=== PATIENT | male | born 1945 | race Caucasian/White ===

== ENCOUNTER 2017-07-08 17:02 | Day surgery (SDC) | payer MEDICARE, MEDICAID ==
[2017-07-08] VITALS (19 sets, daily range): BP systolic 129–156; BP diastolic 69–86
[~2017-07-08] VITALS: Ht 182.9 cm; Wt 103.5 kg
[~2017-07-08 17:02] MED LIST: PSEU120T55 PO
[2017-07-08] MEDS ORDERED: midazolam 100mg in NS 100ml 100 ML IV PRN (17:14)
[2017-07-08] MEDS ORDERED: FENTANYL-0.9 % NACL/PF 100 ML IV PRN (17:14)
[2017-07-08] MEDS ORDERED: fentaNYL/PF 50MCG/1 ML 2ML syringe IV PRN (17:15)
[2017-07-08] MEDS ORDERED: midazolam 2 mg/2 ml injection IV ONE (17:15)
[2017-07-08] MEDS ORDERED: ePHEDrine 50MG/ML INJ. ONE (18:33)
[2017-07-08] MEDS ORDERED: sevoflurane 250ml liquid IH ONE (18:33)
[2017-07-08] MEDS ORDERED: ceFAZolin 1000mg inj ONE ×2 (19:03)
[2017-07-08] MEDS ORDERED: rocuronium 10mg/ml inj IV ONE (19:03)
[2017-07-08] MEDS ORDERED: epiNEPHrine 0.1mg/ml 10ml syringe ONE (19:03)
[2017-07-08] MEDS ORDERED: 0.9 % SODIUM CHLORIDE 10 ML VIAL ONE ×2 (19:03)
[2017-07-08] MEDS ORDERED: ringers solution, lacted 1,000 ML IV SCH (19:32)
[2017-07-09] MEDS ORDERED: mineral oil/petrolatum ophthal oint EACHEYE SCH (20:00)
== END 2017-07-08 23:05 ==
LOC: ER 17:02 → PAS 17:52 → ER 23:05 → PAS 23:05
PROVIDERS: ATTEND Surgery
DX: J95.03 Malfunction of tracheostomy stoma (principal); I10 Essential (primary) hypertension; E11.9 Type 2 diabetes mellitus without complications; B19.20 Unspecified viral hepatitis C without hepatic coma; E78.00 Pure hypercholesterolemia, unspecified; J96.10 Chronic respiratory failure, unspecified whether with hypoxia or hypercapnia; K21.9 Gastro-esophageal reflux disease without esophagitis; Z90.49 Acquired absence of other specified parts of digestive tract; Z85.038 Personal history of other malignant neoplasm of large intestine; Z79.899 Other long term (current) drug therapy
CPT/HCPCS: 31502; 71045; 82948; 94002; 94760; A7521; J0171; J0690; J2250; J7120; A7000

== ENCOUNTER 2019-03-08 15:19 | Outpatient (CLI) | payer MEDICARE, MEDICAID | END 2019-03-08 23:59 | disposition home or self-care (01) | LOC: RAD 15:19 | PROVIDERS: ATTEND Internal Medicine | DX: R13.14 Dysphagia, pharyngoesophageal phase (principal); K21.9 Gastro-esophageal reflux disease without esophagitis; R49.0 Dysphonia | CPT/HCPCS: 74230 ==

== ENCOUNTER 2019-04-04 16:28 | Emergency (ER) | payer MEDICARE, MEDICAID ==
[~2019-04-04] VITALS: Ht 177.8 cm; Wt 67.0 kg
[2019-04-04 17:39] LABS: BASOPHILS % (AUTO) 0.2 % (0-1); EOSINOPHILS % (AUTO) 0 % (0-6); HEMATOCRIT 37.2 % (42.0-52.0); HEMOGLOBIN 12.9 g/dl (14.0-17.9); LYMPHOCYTES # (AUTO) 0.7 X10'3 (1.1-4.8); LYMPHOCYTES % (AUTO) 7.3 % (21-51); MEAN CORPUSCULAR HEMOGLOBIN 32.9 PG (27.0-31.0); MEAN CORPUSCULAR HGB CONC 34.6 g/dL (33.0-36.5); MEAN PLATELET VOLUME 7.5 FL (7.4-10.4); MONOCYTES # (AUTO) 0.7 X10'3 (0-0.9); MONOCYTES % (AUTO) 7.1 % (2-12); NEUTROPHILS # (AUTO) 8.7 X10'3 (1.8-7.7); NEUTROPHILS % (AUTO) 85.4 % (42-75); PLATELET COUNT 159 X10'3 (140-440); RED BLOOD COUNT 3.92 X10'6 (4.70-6.10); WHITE BLOOD COUNT 10.2 X10'3 (4.5-11.0)
[2019-04-04 17:53] LABS: ALANINE AMINOTRANSFERASE 27 U/L (12-78); ALBUMIN 2.7 G/DL (3.4-5.0); ALBUMIN/GLOBULIN RATIO 0.7 (1.1-1.5); ALKALINE PHOSPHATASE 62 IU/L (46-116); ANION GAP 12 (8-16); ASPARTATE AMINO TRANSFERASE 30 U/L (10-37); BILIRUBIN,TOTAL 0.5 MG/DL (0.1-1.0); BLOOD UREA NITROGEN 30 MG/DL (7-18); BUN/CREATININE RATIO 14.7 (5.4-32.0); CALCIUM 8.6 MG/DL (8.5-10.1); CHLORIDE 104 MMOL/L (99-107); CREATININE 2.04 MG/DL (0.60-1.10); GLUCOSE 62 MG/DL (70-104); LIPASE < 50 U/L (73-393); SODIUM 143 MMOL/L (135-145); TOTAL CARBON DIOXIDE 26.8 MMOL/L (24-32); TOTAL PROTEIN 6.8 G/DL (6.4-8.2); eGFR 32 ML/MIN
[2019-04-04 17:55] LABS: POTASSIUM 2.9 MMOL/L (3.5-5.1)
[2019-04-04] MEDS ORDERED: potassium Cl 20 mEq SR tablet PO STA (18:13)
[2019-04-04 18:44] LABS: CLARITY,URINE SLIGHTLY CLOUDY (Clear); COLOR,URINE YELLOW (Yellow); GLUCOSE, URINE NEGATIVE (Neg); KETONES,URINE 15 mg/dl (Neg); LEUKOCYTE ESTERASE ,URINE NEGATIVE (Neg); NITRITES, URINE NEGATIVE (Neg); OCCULT BLOOD,URINE LARGE (Neg); PROTEIN,URINE >=300 mg/dl (Neg); UA COLLECTION TYPE CLN CATCH MIDSTREAM; UROBILINOGEN,URINE 0.2 E.U/dL (0.2-1.0)
[2019-04-04 18:50] LABS: MUCUS STRANDS FEW /LPF (Neg); SQUAMOUS EPITHELIAL CELL,UR FEW /LPF (FEW)
[2019-04-04] MEDS ORDERED: normal saline 1000ML IV soln IVB ONE (18:50)
[2019-04-04 18:51] LABS: BACTERIA,URINE 1+ /HPF (Neg); RBC,URINE 0-2 /HPF (0-2); WBC,URINE 0-4 /HPF (0-4)
[2019-04-04] MEDS ORDERED: LORazepam 2 mg/ml vial IV ONE (18:55)
--- NOTE | 2019-04-04 19:06 | NUR ---
Pt transported to CT scan, will start IV fluid infusion upon return from CT scan.
--- NOTE | 2019-04-04 19:18 | NUR ---
Pt returned from CT scan. Pt tolerated well. Medicated with ativan IV as ordered during the scan.
--- NOTE | 2019-04-04 19:57 | NUR ---
Pt moved from ED [facility] bed 10 to ED bed 6 for further monitoring. Pt is awaiting results for further orders or disposition.
--- NOTE | 2019-04-04 20:30 | NUR ---
COVERING FOR MAIN RN CORAL; UPDATED VITALS, UPDATED PT AND FAMILY ON PLAN OF CARE, AND GAVE WATER TO PT UPON REQUEST. LYING COMFORTABLY IN BED
[2019-04-04] MEDS ORDERED: azithromycin 250mg tablet PO ONE (21:15)
[2019-04-04] MEDS ORDERED: CefTRIAXone/D5W-Rocephin 1gm 50 ML IV ONE (21:15)
--- NOTE | 2019-04-04 21:19 | NUR ---
SPOKE WITH NATALIE CHAMPAGNE REGARDING BLOOD CULTURES DRAWN PRIOR TO ANTIBIOTIC ADMIN (SEE EMAR), ORDERS RECEIVED.
[2019-04-04] MEDS ORDERED: DOXY100C43 PO (21:55)
[2019-04-04 22:12] VITALS: BP 155/93
== END 2019-04-04 22:15 | disposition home or self-care (01) ==
LOC: ER 16:28
DX: J18.9 Pneumonia, unspecified organism (principal); R11.2 Nausea with vomiting, unspecified; G62.9 Polyneuropathy, unspecified; E78.00 Pure hypercholesterolemia, unspecified; K21.9 Gastro-esophageal reflux disease without esophagitis; F17.210 Nicotine dependence, cigarettes, uncomplicated; Z90.49 Acquired absence of other specified parts of digestive tract; Z85.038 Personal history of other malignant neoplasm of large intestine
CPT/HCPCS: 36415; 71046; 71250; 74176; 80053; 81001; 82948; 83605; 83690; 84145; 85025; 87040; 87502; 87503; 96361; 96365; 96375; 99284; J0696; J2060; J7030

== ENCOUNTER 2019-04-07 15:06 | Emergency (ER) | payer MEDICARE, MEDICAID ==
[~2019-04-07] VITALS: Ht 177.8 cm; Wt 68.0 kg
[~2019-04-07 15:06] MED LIST changes: +DOXY100C43 PO
[2019-04-07 15:25] VITALS: BP 139/89
== END 2019-04-07 17:29 | disposition left against medical advice (07) ==
LOC: ER 15:07
DX: R11.2 Nausea with vomiting, unspecified (principal); R53.81 Other malaise; Z53.21 Procedure and treatment not carried out due to patient leaving prior to being seen by health care provider

== ENCOUNTER 2021-04-15 18:37 | Emergency (ER) | payer MEDICARE, MEDICAID ==
[~2021-04-15] VITALS: Ht 177.8 cm; Wt 72.7 kg
[~2021-04-15 18:37] MED LIST changes: +ASPI-1071 PO; +ATOR20TA66 PO; +DILT180T11 PO; -DOXY100C43 PO; +DULO60CA65 PO; +FERR325T29 PO; +FURO20TA4 PO; +OMEG-220 PO; +PANT40TA54 PO; -PSEU120T55 PO; +TRAZ-251 PO
[2021-04-15] MEDS ORDERED: furosemide 10 MG/1 ML 10ml inj IV ONE (19:00)
[2021-04-15 19:41] VITALS: BP 172/83
[2021-04-15 20:39] LABS: BASOPHILS # (AUTO) 0.1 X10'3 (0-0.2); BASOPHILS % (AUTO) 0.9 % (0-1); EOSINOPHILS # (AUTO) 0.1 X10'3 (0-0.9); EOSINOPHILS % (AUTO) 2.3 % (0-6); HEMATOCRIT 24.6 % (42.0-52.0); HEMOGLOBIN 8.3 g/dl (14.0-17.9); LYMPHOCYTES # (AUTO) 1.1 X10'3 (1.1-4.8); LYMPHOCYTES % (AUTO) 19.6 % (21-51); MEAN CORPUSCULAR HEMOGLOBIN 32.1 PG (27.0-31.0); MEAN CORPUSCULAR HGB CONC 33.6 g/dL (33.0-36.5); MEAN CORPUSCULAR VOLUME 95.5 FL (78-98); MEAN PLATELET VOLUME 7.7 FL (7.4-10.4); MONOCYTES # (AUTO) 0.4 X10'3 (0-0.9); MONOCYTES % (AUTO) 7.5 % (2-12); NEUTROPHILS # (AUTO) 4.1 X10'3 (1.8-7.7); NEUTROPHILS % (AUTO) 69.7 % (42-75); PLATELET COUNT 166 X10'3 (140-440); RED BLOOD COUNT 2.58 X10'6 (4.70-6.10); RED CELL DISTRIBUTION WIDTH 15.3 % (11.5-14.5); WHITE BLOOD COUNT 5.9 X10'3 (4.5-11.0)
[2021-04-15 20:53] LABS: ALANINE AMINOTRANSFERASE 10 U/L (12-78); ALBUMIN 3.1 G/DL (3.4-5.0); ALBUMIN/GLOBULIN RATIO 0.8 (1.1-1.5); ALKALINE PHOSPHATASE 78 IU/L (46-116); ANION GAP 14 (8-16); ASPARTATE AMINO TRANSFERASE 14 U/L (10-37); BILIRUBIN,TOTAL 0.4 MG/DL (0.1-1.0); BLOOD UREA NITROGEN 101 MG/DL (7-18); BUN/CREATININE RATIO 25.1 (5.4-32.0); CALCIUM 8.4 MG/DL (8.5-10.1); CHLORIDE 103 MMOL/L (99-107); CREATININE 4.03 MG/DL (0.60-1.10); GLUCOSE 112 MG/DL (70-104); POTASSIUM 4.9 MMOL/L (3.5-5.1); SODIUM 139 MMOL/L (135-145); TOTAL CARBON DIOXIDE 22.2 MMOL/L (24-32); TOTAL PROTEIN 6.9 G/DL (6.4-8.2); eGFR 15 ML/MIN
== END 2021-04-15 22:17 | disposition home or self-care (01) ==
LOC: ER 18:37
DX: R60.0 Localized edema (principal); I12.9 Hypertensive chronic kidney disease with stage 1 through stage 4 chronic kidney disease, or unspecified chronic kidney disease; E11.22 Type 2 diabetes mellitus with diabetic chronic kidney disease; N18.9 Chronic kidney disease, unspecified; L89.159 Pressure ulcer of sacral region, unspecified stage; E11.43 Type 2 diabetes mellitus with diabetic autonomic (poly)neuropathy; I11.0 Hypertensive heart disease with heart failure; I50.9 Heart failure, unspecified; E78.00 Pure hypercholesterolemia, unspecified; K21.9 Gastro-esophageal reflux disease without esophagitis; Z87.01 Personal history of pneumonia (recurrent); Z85.038 Personal history of other malignant neoplasm of large intestine; Z90.49 Acquired absence of other specified parts of digestive tract; Z79.82 Long term (current) use of aspirin; Z79.899 Other long term (current) drug therapy
CPT/HCPCS: 36415; 80053; 83880; 85025; 93005; 96374; 99284; J1940

== ENCOUNTER 2021-05-22 17:53 | Emergency (ER) | payer MEDICARE, MEDICAID ==
[~2021-05-22] VITALS: Ht 177.8 cm; Wt 75.0 kg
[2021-05-22] MEDS ORDERED: ipratropium/albuterol 3ml nebule NEB ONE (19:05)
[2021-05-22] MEDS ORDERED: furosemide 10 MG/1 ML 10ml inj IV ONE (19:05)
[2021-05-22] MEDS ORDERED: ondansetron/PF 4mg/2ml inj IV ONE (19:05)
[2021-05-22 19:10] LABS: EOSINOPHILS % (AUTO) 0.5 % (0-6); LYMPHOCYTES # (AUTO) 0.8 X10'3 (1.1-4.8); MEAN CORPUSCULAR HGB CONC 32.3 g/dL (33.0-36.5); MONOCYTES # (AUTO) 0.3 X10'3 (0-0.9); MONOCYTES % (AUTO) 6.2 % (2-12); NEUTROPHILS # (AUTO) 3.8 X10'3 (1.8-7.7); WHITE BLOOD COUNT 4.9 X10'3 (4.5-11.0)
[2021-05-22] MEDS ORDERED: predniSONE 20 mg tablet PO ONE (19:10)
[2021-05-22 19:13] LABS: HEMATOCRIT 25.1 % (42.0-52.0); HEMOGLOBIN 8.1 g/dl (14.0-17.9); LYMPHOCYTES % (AUTO) 15.2 % (21-51); MEAN CORPUSCULAR HEMOGLOBIN 32.9 PG (27.0-31.0); MEAN CORPUSCULAR VOLUME 101.9 FL (78-98); MEAN PLATELET VOLUME 7.6 FL (7.4-10.4); NEUTROPHILS % (AUTO) 77.1 % (42-75); PLATELET COUNT 239 X10'3 (140-440); RED BLOOD COUNT 2.46 X10'6 (4.70-6.10); RED CELL DISTRIBUTION WIDTH 17.5 % (11.5-14.5)
[2021-05-22 19:42] LABS: ALANINE AMINOTRANSFERASE 23 U/L (12-78); ALBUMIN 3.1 G/DL (3.4-5.0); ALBUMIN/GLOBULIN RATIO 0.9 (1.1-1.5); ALKALINE PHOSPHATASE 86 IU/L (46-116); ANION GAP 18 (8-16); ASPARTATE AMINO TRANSFERASE 17 U/L (10-37); BILIRUBIN,TOTAL 0.3 MG/DL (0.1-1.0); BLOOD UREA NITROGEN 101 MG/DL (7-18); BUN/CREATININE RATIO 21.6 (5.4-32.0); CALCIUM 7.1 MG/DL (8.5-10.1); CHLORIDE 109 MMOL/L (99-107); CREATININE 4.68 MG/DL (0.60-1.10); GLUCOSE 90 MG/DL (70-104); POTASSIUM 4.4 MMOL/L (3.5-5.1); SODIUM 148 MMOL/L (135-145); TOTAL CARBON DIOXIDE 21.3 MMOL/L (24-32); TOTAL PROTEIN 6.6 G/DL (6.4-8.2); eGFR 12 ML/MIN
[2021-05-22 20:53] VITALS: BP 153/81
== END 2021-05-22 21:06 | disposition home or self-care (01) ==
LOC: ER 17:55
DX: R60.9 Edema, unspecified (principal); N17.9 Acute kidney failure, unspecified; R06.02 Shortness of breath; R05.9 Cough, unspecified; R11.0 Nausea; E11.42 Type 2 diabetes mellitus with diabetic polyneuropathy; I11.0 Hypertensive heart disease with heart failure; I50.9 Heart failure, unspecified; E78.00 Pure hypercholesterolemia, unspecified; K21.9 Gastro-esophageal reflux disease without esophagitis; Z87.01 Personal history of pneumonia (recurrent); Z86.19 Personal history of other infectious and parasitic diseases; Z98.890 Other specified postprocedural states; Z85.038 Personal history of other malignant neoplasm of large intestine; Z79.82 Long term (current) use of aspirin; Z79.899 Other long term (current) drug therapy
CPT/HCPCS: 36415; 71046; 80053; 83880; 84145; 85025; 93005; 94640; 96374; 96375; 99285; J1940; J2405; J7512; 94760

== ENCOUNTER 2021-06-20 10:31 | Day surgery (SDC) | payer MEDICARE, MEDICAID ==
[~2021-06-20] VITALS: Ht 177.8 cm; Wt 76.6 kg
[~2021-06-20 10:31] MED LIST changes: +LIDOcaine 1% (10mg/ml)w/preservative inj. 20ml MDV ONE; +fentaNYL/PF 50MCG/1 ML 2ML syringe ONE; +heparin 1,000unit/ml 10ml vial 10 ML ONE; +midazolam 1 mg/ML 2ml injection ONE
[2021-06-20 11:01] VITALS: BP 155/83
[2021-06-20] MEDS ORDERED: vitamin d3 PO (11:13)
[2021-06-20] MEDS ORDERED: MAGN64TA10 PO (11:13)
[2021-06-20] MEDS ORDERED: OMEG1CAP61 PO (11:13)
[2021-06-20] MEDS ORDERED: GABA300C PO (11:13)
[2021-06-20] MEDS ORDERED: HYDR-3972 PO (11:13)
[2021-06-20] MEDS ORDERED: TIOT18CA3 INH (11:13)
[2021-06-20] MEDS ORDERED: ALBU90AE INH (11:13)
[2021-06-20] MEDS ORDERED: PANT-47 PO (11:13)
[2021-06-20] MEDS ORDERED: BUDE10.27 PO (11:13)
[2021-06-20] MEDS ORDERED: normal saline 1000ml 1,000 ML IV PRN (11:45)
[2021-06-20 14:30] VITALS: BP 161/109
[2021-06-20 14:45] VITALS: BP 156/84
[2021-06-20 15:00] VITALS: BP 161/92
[2021-06-20 15:30] VITALS: BP 151/74
== END 2021-06-20 15:45 | disposition home or self-care (01) ==
LOC: SSTAY O 10:31
PROVIDERS: ATTEND Radiology Diagnostic Radiology
DX: E11.22 Type 2 diabetes mellitus with diabetic chronic kidney disease (principal); I12.0 Hypertensive chronic kidney disease with stage 5 chronic kidney disease or end stage renal disease; N18.6 End stage renal disease; J44.9 Chronic obstructive pulmonary disease, unspecified; Z98.890 Other specified postprocedural states; Z79.899 Other long term (current) drug therapy; Z91.09 Other allergy status, other than to drugs and biological substances
CPT/HCPCS: 36415; 36558; 76937; 77001; 84132; 99152; 99153; C1750; C1769; C1894; J1644; J2250; J3010; J3490; J7030; A9270

== ENCOUNTER 2021-08-30 11:54 | Emergency (ER) | payer MEDICARE, MEDICAID ==
[~2021-08-30] VITALS: Ht 177.8 cm; Wt 72.7 kg
[~2021-08-30 11:54] MED LIST changes: +ALBU90AE INH; -ASPI-1071 PO; +BUDE10.27 PO; -DULO60CA65 PO; +GABA300C PO; +HYDR-3972 PO; -LIDOcaine 1% (10mg/ml)w/preservative inj. 20ml MDV ONE; +MAGN64TA10 PO; -OMEG-220 PO; +OMEG1CAP61 PO; +PANT-47 PO; -PANT40TA54 PO; +TIOT18CA3 INH; -fentaNYL/PF 50MCG/1 ML 2ML syringe ONE; -heparin 1,000unit/ml 10ml vial 10 ML ONE; -midazolam 1 mg/ML 2ml injection ONE; +vitamin d3 PO
[2021-08-30 12:38] VITALS: BP 113/70
== END 2021-08-30 17:54 | disposition left against medical advice (07) ==
LOC: ER 11:54
DX: T14.8XXA Other injury of unspecified body region, initial encounter (principal); Z53.21 Procedure and treatment not carried out due to patient leaving prior to being seen by health care provider; X58.XXXA Exposure to other specified factors, initial encounter; Y93.9 Activity, unspecified; Y92.9 Unspecified place or not applicable; Y99.9 Unspecified external cause status